=== PATIENT | female | born 1985 | race Caucasian/White ===

== ENCOUNTER 2019-08-19 22:29 | Emergency (ER) | payer MEDICAID, SELFPAY ==
[2019-08-19 22:31] VITALS: BP 124/78; PULSE 97; RESP 15; TEMP 36.7; O2SAT 97; BMI 23.8
--- NOTE | 2019-08-19 22:43 | RAD_ITS ---
STUDY: X-RAY - RIGHT HAND, ATTENTION FIRST FINGER REASON FOR EXAM: Female, 33 years old. CUT END OF RT THUMB WITH TABLE SAW TECHNIQUE: 3 view(s) of the finger were obtained. COMPARISON: None. FINDINGS: Normal metacarpal head. Normal metacarpophalangeal joint. Normal proximal phalanx. Normal middle phalanx. Normal distal phalanx. Normal proximal interphalangeal joint. Normal distal interphalangeal joint. Soft tissue injury. No radiodense foreign body is seen. RAD/Finger(s) Min 2 Views IMPRESSION: No acute osseous injury is evident. Electronically Signed: Fox Eaton MD at 23:23 EDT Tel , Service support ,
--- NOTE | 2019-08-19 22:49 | ED.DCSUM_ITS ---
History of Present Illness Chief Complaint: Laceration Informant: Patient Onset: Today Narrative: Around 1800 hrs. the patient was using a table saw and lacerated her right finger on the blade. Unknown last tetanus. She applied pressure and wrapped it but it began to hurt and the took the dressing down and started to bleed again. After cleaning it up decided it would probably need stitches. She is right- handed. Past Medical History - Allergies and Home Meds Allergies/Adverse Reactions: Allergies bacitracin [From Neosporin ([id number])] Allergy (Verified 08/19/19 22:30) Rash neomycin [From Neosporin ([id number])] Allergy (Verified 08/19/19 22:30) Rash polymyxin B [From Neosporin ([id number])] Allergy (Verified 08/19/19 22:30) Rash Primary Care Physician: NOT,DEFINED [NON-STAFF] - Smoking Status: Never smoker Review of Systems General: Denies: Chills, Fever, Sweats Eyes: Denies: Visual changes - bilaterally, Diplopia ENT: Denies: Rhinorrhea, Sore throat Cardiovascular: Denies: Chest pain, Palpitations Respiratory: Denies: Dyspnea, Cough, Dyspnea on exertion Gastrointestinal: Denies: Abdominal pain, Nausea, Vomiting, Diarrhea, Melena, He matochezia Genitourinary: Denies: Dysuria, Hematuria, Frequency Musculoskeletal: Denies: Back pain, Extremity Pain Skin: Denies: Rash, Wounds Neurological: Denies: Headache, Weakness, Numbness Physical Exam Vital Signs/Narrative: Vital Signs Temp Pulse Resp BP Pulse Ox 08/19/19 22:31 98.0 F 97 15 124/78 H 97 Inital Vital Signs reviewed: Yes General: Well nourished, Well developed, No Acute Distress Head: Normocephalic, Atraumatic Eyes: Perrl, EOMI ENT: Moist mucous membranes, No rhinorrhea Neck: Supple, Nontender Cardiovascular: Regular rate, Regular rhythm, No murmurs Respiratory: No distress, CTA bilaterally, Chest nontender Abdomen: Soft, Nontender, Nondistended, Normal bowel sounds Back: Nontender, Normal Inspection Extremities: No edema, - - Right distal tip of thumb demonstrates a 1.5 cm laceration. This extends up to the nail. There is a small area of nail laceration just medial to this. No subungual hematoma. NVI. Skin: Normal color, No rash Neurological: Alert, Oriented x3, Cranial nerves II-XII grossly intact, Normal Strength, Normal Sensation Psychological: Normal affect, Normal Mood Diagnostic/Tx/Re-eval - Medical Decision Making Patient underwent a digital block with 1% lidocaine using a single volar appr oach. After adequate anesthesia was present the wound was washed with Shur- Clens and explored. No foreign bodies were noted. It was closed using a total of 4 simple erupted 4-0 Ethilon sutures. The partial nail avulsion was trimmed. The small amount of nailbed that was injured was completely macerated and unable to be repaired. Wound was dressed and wound care discussed with patient. X-rays of the thumb were done which noted no obvious bony injury. ED Disposition - Plan for ED Patient: Disposition: Home or Assisted Living Diagnosis: Laceration of thumb with damage to nail Instructions: ED Laceration Hand Referrals: NOT,DEFINED [NON-STAFF] - Additional Instructions: Stitches is need to be removed in 7 to 10 days.
[2019-08-19] MEDS: Diphth,Pertuss(Acell),Tet Vac 0.5 ML Vial IM (23:04)
[2019-08-19 23:39] VITALS: BP 121/68; PULSE 89; RESP 18; O2SAT 96
== END 2019-08-19 23:39 | disposition home or self-care (01) ==
PROVIDERS: Emergency Provider Emergency Medicine
DX: S61.111A Laceration without foreign body of right thumb with damage to nail, initial encounter (principal); W31.2XXA Contact with powered woodworking and forming machines, initial encounter
CPT/HCPCS: 12001; 73140; 90471; 90715; 99283